=== PATIENT | male | born 1955 | race Caucasian/White ===

== ENCOUNTER 2017-01-23 05:55 | Inpatient (IN) ==
[2017-01-18 09:45] LABS: Basophils # 0.1 10*3/uL (0.0-0.2); Basophils % 0.7 % (0.0-0.8); Eosinophils # 0.2 10*3/uL (0.0-0.87); Eosinophils % 2.1 % (0.00-10.9); Hematocrit 43.9 VOL% (42.0-52.0); Hemoglobin 15.1 GM/DL (14.0-18.0); Immature Granulocytes % 0.3 %; Immature Granulocytes Absolute 0.03 #; Lymphocytes # 3.8 10*3/uL (1.4-4.0); Lymphocytes % 34.5 % (21.2-54.2); Mean Corpuscular HGB Conc 34.4 GM/DL (32-36); Mean Corpuscular Hemoglobin 30 PG (27-34); Mean Corpuscular Volume 86.6 FL (87-102); Mean Platelet Volume 10.5 FL (9.6-12.0); Monocytes # 0.8 10*3/uL (0.11-0.8); Monocytes % 7.6 % (1.7-12.7); Neutrophils % 54.8 % (38.7-73.9); Platelet Count 260 T/CUMM (130-400); Red Blood Count 5.07 MC/CUMM (3.8-5.5); Red Cell Distribution Width 12.7 % (9.3-17.3)
[2017-01-18 09:48] LABS: Apearance,Urine CLEAR (Clear); Bilirubin,Urine Negative (Negative); Blood, Urine Negative (Negative); Glucose,Urine (UA) Negative (Negative); Ketones,Urine Negative (Negative); Nitrite,Urine Negative (Negative); Protein,Urine Negative; RBC,Urine <1 /HPF (0-4); Urine Color Yellow (Yellow); Urine Specific Gravity 1.014 (1.001-1.035); Urine Urobilinogen < 2.0 EU/DL (0.2-1.0); WBC,Urine 2 /HPF (0-6)
[2017-01-18 09:59] LABS: Osmolality,Calculated 282.1 MOS/KG (273-304); Potassium 4.9 MMOL/L (3.5-5.1)
[2017-01-23] MEDS ORDERED: cefTRIAXone 1,000 MG VIAL ONE (05:56)
[2017-01-23] MEDS ORDERED: ALVIMOPAN 12 MG CAPSULE ONE (05:56)
[2017-01-23] MEDS ORDERED: SODIUM PHOSPHATE ENEMA 133 ML BOTTLE RECTAL ONE (05:57)
[2017-01-23] MEDS ORDERED: DIAZEPAM 5 MG TABLET PO ONE (06:13)
[2017-01-23] MEDS ORDERED: SCOPOLAMINE 1.5 MG PATCH TRANSDERM ONE (06:13)
[2017-01-23] MEDS ORDERED: FAMOTIDINE 20 MG TABLET PO ONE (06:14)
[2017-01-23] MEDS: LACTATED RINGERS 1,000 ML IV SCH (06:47)
[2017-01-23] MEDS ORDERED: SODIUM PHOSPHATE ENEMA 133 ML BOTTLE RECTAL SCH ×2 (07:00)
[2017-01-23] MEDS ORDERED: ALVIMOPAN 12 MG CAPSULE PO SCH ×2 (07:00)
[2017-01-23] MEDS ORDERED: cefTRIAXone 1,000 MG in SYRINGE 1 EACH IV ONE (07:00)
[2017-01-23 08:16] LABS: Apearance,Urine CLEAR (Clear); Bilirubin,Urine Negative (Negative); Blood, Urine Large mg/dL (Negative); Glucose,Urine (UA) Negative (Negative); Ketones,Urine Negative (Negative); Mucus,Urine Occasional /LPF (Occasional); Nitrite,Urine Negative (Negative); Protein,Urine Negative; RBC,Urine 149 /HPF (0-4); Urine Color Yellow (Yellow); Urine Specific Gravity 1.008 (1.001-1.035); Urine Urobilinogen < 2.0 EU/DL (0.2-1.0); WBC,Urine 4 /HPF (0-6)
[2017-01-23] MEDS ORDERED: MIDAZOLAM 2 MG/2 ML VIAL ONE (12:03)
[2017-01-23] MEDS ORDERED: SEVOFLURANE 1 UNIT/15 MINUTE INH ONE (12:03)
[2017-01-23] MEDS ORDERED: HYDROmorphone 2 MG/1 ML VIAL ONE (12:03)
[2017-01-23] MEDS ORDERED: PROPOFOL 200 MG/20 ML VIAL IV ONE (12:03)
[2017-01-23] MEDS ORDERED: DEXAMETHASONE 10 MG/1 ML VIAL ONE (12:04)
[2017-01-23] MEDS ORDERED: GLYCOPYRROLATE 0.4 MG/2 ML VIAL ONE (12:04)
[2017-01-23] MEDS ORDERED: ONDANSETRON 4 MG/2 ML VIAL ONE (12:04)
[2017-01-23] MEDS ORDERED: fentaNYL 100 MCG/2 ML VIAL ONE (12:04)
[2017-01-23] MEDS ORDERED: ACETAMINOPHEN 1,000 MG/100 ML VIAL IV ONE (12:04)
[2017-01-23] MEDS ORDERED: KETAMINE 500 MG/10 ML VIAL ONE (12:04)
[2017-01-23] MEDS ORDERED: ROCURONIUM 100 MG/10 ML VIAL IV ONE (12:05)
[2017-01-23] MEDS ORDERED: SUCCINYLCHOLINE 200 MG/10 ML VIAL ONE (12:05)
[2017-01-23] MEDS ORDERED: ONDANSETRON 4 MG/2 ML VIAL IV PRN (12:07)
[2017-01-23] MEDS ORDERED: ALBUMIN 5% 12.5 GM/250 ML VIAL IV ONE (12:14)
[2017-01-23] MEDS: SODIUM CHLORIDE 0.9% 1,000 ML IV SCH (12:37)
[2017-01-23] MEDS: HYDROmorphone PCA 30 MG/30 ML SYRINGE IV SCH (14:23)
[2017-01-23] MEDS ORDERED: ChlordiazePOXIDE/CLIDINIUM 5-2.5 MG CAPSULE PO PRN (15:00)
[2017-01-23] MEDS ORDERED: diphenhydrAMINE 50 MG/1 ML VIAL IV PRN (15:00)
[2017-01-23] MEDS: CEFUROXIME 250 MG TABLET PO SCH ×2 (15:30→22:21)
[2017-01-23] MEDS ORDERED: ZALEPLON 5 MG CAPSULE PO PRN (20:00)
[2017-01-23] MEDS: TRAVOPROST 0.004% OPH SOLN 2.5 ML BOTTLE BOTH EYES SCH (22:20)
[2017-01-23] MEDS: rOPINIRole 0.25 MG TABLET PO SCH (22:21)
[2017-01-23] MEDS: ALVIMOPAN 12 MG CAPSULE PO SCH (22:21)
[2017-01-23] MEDS: OXYBUTYNIN XL 10 MG TABLET PO SCH (22:21)
[2017-01-24] MEDS: SODIUM CHLORIDE 0.9% 1,000 ML IV SCH (02:51)
[2017-01-24 05:56] LABS: Basophils % 0.2 % (0.0-0.8); Hematocrit 37.5 VOL% (42.0-52.0); Hemoglobin 12.5 GM/DL (14.0-18.0); Immature Granulocytes % 0.6 %; Immature Granulocytes Absolute 0.11 #; Lymphocytes # 2.8 10*3/uL (1.4-4.0); Lymphocytes % 14.4 % (21.2-54.2); Mean Corpuscular HGB Conc 33.3 GM/DL (32-36); Mean Corpuscular Hemoglobin 29 PG (27-34); Mean Platelet Volume 10.9 FL (9.6-12.0); Monocytes # 1.4 10*3/uL (0.11-0.8); Monocytes % 7.5 % (1.7-12.7); Neutrophils # 14.9 10*3/uL (1.4-7.4); Neutrophils % 77.3 % (38.7-73.9); Platelet Count 258 T/CUMM (130-400); Red Blood Count 4.26 MC/CUMM (3.8-5.5); Red Cell Distribution Width 12.8 % (9.3-17.3); White Blood Count 19.3 T/CUMM (4-12)
[2017-01-24 06:26] LABS: Calcium 8.3 MG/DL (8.5-10.1); Osmolality,Calculated 283.3 MOS/KG (273-304)
[2017-01-24] MEDS: LACTATED RINGERS 1,000 ML IV SCH (08:53)
[2017-01-24] MEDS: METOPROLOL SUCCINATE XL 25 MG TABLET PO SCH (09:31)
[2017-01-24] MEDS: MULTIVITAMIN (CENTRUM) TABLET PO SCH (09:31)
[2017-01-24] MEDS: CEFUROXIME 250 MG TABLET PO SCH ×2 (09:32→20:54)
[2017-01-24] MEDS: ALVIMOPAN 12 MG CAPSULE PO SCH ×2 (09:32→20:54)
[2017-01-24] MEDS: POLYETHYLENE GLYCOL POWDER 17 GM PACK PO SCH (09:32)
[2017-01-24] MEDS: buPROPion 100 MG TABLET PO SCH (09:32)
[2017-01-24] MEDS ORDERED: MEPERIDINE 50 MG/1 ML VIAL IM PRN (12:21)
[2017-01-24] MEDS ORDERED: oxyCODONE/ACETAMINOPHEN 5-325 MG TABLET PO PRN (12:23)
[2017-01-24] MEDS: oxyCODONE/ACETAMINOPHEN 5-325 MG TABLET PO PRN (15:01)
[2017-01-24] MEDS: HYDROmorphone PCA 30 MG/30 ML SYRINGE IV SCH (15:59)
[2017-01-24] MEDS: TRAVOPROST 0.004% OPH SOLN 2.5 ML BOTTLE BOTH EYES SCH (20:54)
[2017-01-24] MEDS: rOPINIRole 0.25 MG TABLET PO SCH (20:54)
[2017-01-24] MEDS: OXYBUTYNIN XL 10 MG TABLET PO SCH (20:54)
[2017-01-25] MEDS: oxyCODONE/ACETAMINOPHEN 5-325 MG TABLET PO PRN (01:45)
[2017-01-25] MEDS: LACTATED RINGERS 1,000 ML IV SCH (08:30)
[2017-01-25] MEDS: buPROPion 100 MG TABLET PO SCH (08:34)
[2017-01-25] MEDS: CEFUROXIME 250 MG TABLET PO SCH (08:34)
[2017-01-25] MEDS: POLYETHYLENE GLYCOL POWDER 17 GM PACK PO SCH (08:34)
[2017-01-25] MEDS: ALVIMOPAN 12 MG CAPSULE PO SCH (08:34)
[2017-01-25] MEDS: METOPROLOL SUCCINATE XL 25 MG TABLET PO SCH (08:34)
[2017-01-25] MEDS: MULTIVITAMIN (CENTRUM) TABLET PO SCH (08:34)
[2017-01-25 13:28] VITALS: BP 129/78
== END 2017-01-25 14:00 | disposition home or self-care (01) | DRG 708 ==
LOC: N.OR 05:55 → N.SDSINP 05:56 → N.5E 12:07
PROVIDERS: ADMIT Urology; ATTEND Urology

== ENCOUNTER 2020-09-26 12:14 | Inpatient (IN) ==
[2020-09-26 16:15] LABS: Basophils # 0.1 10*3/uL (0.0-0.2); Basophils % 0.2 % (0.0-0.8); Eosinophils # 0.1 10*3/uL (0.0-0.87); Eosinophils % 0.5 % (0.00-10.9); Hematocrit 44.6 VOL% (42.0-52.0); Hemoglobin 14.5 GM/DL (14.0-18.0); Immature Granulocytes % 0.4 %; Immature Granulocytes Absolute 0.09 #; Lymphocytes # 8.5 10*3/uL (1.4-4.0); Lymphocytes % 40.7 % (21.2-54.2); Mean Corpuscular HGB Conc 32.5 GM/DL (32-36); Mean Corpuscular Volume 89.9 FL (87-102); Mean Platelet Volume 10.3 FL (9.6-12.0); Monocytes % 5.3 % (1.7-12.7); Neutrophils % 52.9 % (38.7-73.9); Platelet Count 283 T/CUMM (130-400); Red Blood Count 4.96 MC/CUMM (3.8-5.5); Red Cell Distribution Width 12.6 % (9.3-17.3)
[2020-09-26 16:16] LABS: Bacteria,Urine Occasional /HPF (Few); Bilirubin,Urine Negative (Negative); Blood, Urine Negative (Negative); Glucose,Urine (UA) Negative (Negative); Ketones,Urine Negative (Negative); Mucus,Urine Occasional /LPF (Occasional); Nitrite,Urine Negative (Negative); Protein,Urine Negative; RBC,Urine 2 /HPF (0-4); Squamous Epithelial Cell,Urine Occasional /HPF (0-10); Urine Appearance CLEAR (Clear); Urine Color Yellow (Yellow); Urine Specific Gravity 1.017 (1.001-1.035); Urine Urobilinogen < 2.0 EU/DL (0.2-1.0)
[2020-09-26] MEDS ORDERED: KETOROLAC 30 MG/1 ML VIAL IV STA (16:20)
[2020-09-26 16:30] LABS: Bilirubin,Total 0.6 MG/DL (0.20-1.00); Calcium 9.4 MG/DL (8.5-10.1); Osmolality,Calculated 278.4 MOS/KG (273-304); Total Protein 7.5 G/DL (6.4-8.2)
[2020-09-26 17:32] LABS: Lymphocytes 34 % (20-55); Segmented Neutrophils 56 % (50-85); Total Cells Counted 100
[2020-09-26] MEDS ORDERED: ONDANSETRON 4 MG/2 ML VIAL IV PRN (18:14)
[2020-09-26] MEDS ORDERED: ACETAMINOPHEN 325 MG TABLET PO PRN (18:14)
[2020-09-26] MEDS: PIPERACILLIN/TAZOBACTAM 3,375 MG in SODIUM CHLORIDE 0.9% 100 ML IV SCH (19:10)
[2020-09-26] MEDS: DEXTROSE 5% LACTATED RINGERS 1,000 ML IV SCH (19:10)
[2020-09-27] MEDS: PIPERACILLIN/TAZOBACTAM 3,375 MG in SODIUM CHLORIDE 0.9% 100 ML IV SCH ×3 (03:09→17:40)
[2020-09-27] MEDS: DEXTROSE 5% LACTATED RINGERS 1,000 ML IV SCH ×3 (03:19→23:15)
[2020-09-27] MEDS: carvediloL 6.25 MG TABLET PO SCH ×2 (08:37→16:48)
[2020-09-27] MEDS: PANTOPRAZOLE 40 MG TABLET PO SCH (08:37)
[2020-09-27] MEDS ORDERED: BUPIVACAINE MPF 0.25% 30 ML VIAL ONE (10:42)
[2020-09-27] MEDS ORDERED: LIDOCAINE 1%/EPI INJ 20 ML VIAL ONE (10:42)
[2020-09-27] MEDS ORDERED: SEVOFLURANE 1 UNIT/15 MINUTE INH ONE (10:53)
[2020-09-27] MEDS ORDERED: ROCURONIUM 50 MG/5 ML VIAL IV ONE (10:53)
[2020-09-27] MEDS ORDERED: MIDAZOLAM 2 MG/2 ML VIAL ONE (10:53)
[2020-09-27] MEDS ORDERED: fentaNYL 100 MCG/2 ML VIAL ONE ×2 (10:53→12:18)
[2020-09-27] MEDS ORDERED: propofoL 200 MG/20 ML VIAL IV ONE (10:53)
[2020-09-27] MEDS ORDERED: LIDOCAINE 2% 5 ML VIAL ONE (10:53)
[2020-09-27] MEDS ORDERED: ONDANSETRON 4 MG/2 ML VIAL ONE (10:53)
[2020-09-27] MEDS ORDERED: LACTATED RINGERS 1,000 ML IV SCH (11:30)
[2020-09-27] MEDS ORDERED: PHENYLEPHRINE 1 MG/10 ML SYRINGE IV ONE (11:49)
[2020-09-27] MEDS ORDERED: ACETAMINOPHEN INJ 1,000 MG/100 ML VIAL IV ONE (11:49)
[2020-09-27] MEDS ORDERED: NEOSTIGMINE 10 MG/10 ML VIAL ONE (12:48)
[2020-09-27] MEDS ORDERED: GLYCOPYRROLATE 0.4 MG/2 ML VIAL ONE (12:48)
[2020-09-27] MEDS ORDERED: LACTATED RINGERS 1,000 ML IV ONE (12:56)
[2020-09-27] MEDS ORDERED: ONDANSETRON 4 MG/2 ML VIAL IV PRN (13:47)
[2020-09-27] MEDS: HYDROmorphone 2 MG/1 ML VIAL IV PRN ×2 (13:51→13:56)
[2020-09-27] MEDS: MORPHINE 2 MG/1 ML SYRINGE IV PRN ×2 (16:22→20:56)
[2020-09-27] MEDS: ASPIRIN EC 81 MG TABLET PO SCH (20:57)
[2020-09-27] MEDS ORDERED: rOPINIRole 0.25 MG TABLET PO SCH (21:00)
[2020-09-27] MEDS ORDERED: LATANOPROST 0.005% OPH SOLN 2.5 ML BOTTLE BOTH EYES SCH (21:00)
[2020-09-28] MEDS: PIPERACILLIN/TAZOBACTAM 3,375 MG in SODIUM CHLORIDE 0.9% 100 ML IV SCH ×2 (01:41→09:49)
[2020-09-28 05:49] LABS: Albumin 2.7 G/DL (3.4-5.0); Calcium 8.6 MG/DL (8.5-10.1); Osmolality,Calculated 278.5 MOS/KG (273-304); Potassium 3.8 MMOL/L (3.5-5.1); Total Protein 6.1 G/DL (6.4-8.2)
[2020-09-28 05:54] LABS: Basophils # 0.1 10*3/uL (0.0-0.2); Basophils % 0.5 % (0.0-0.8); Eosinophils # 0.3 10*3/uL (0.0-0.87); Eosinophils % 1.9 % (0.00-10.9); Hematocrit 37.3 VOL% (42.0-52.0); Immature Granulocytes % 0.4 %; Immature Granulocytes Absolute 0.05 #; Lymphocytes # 4.7 10*3/uL (1.4-4.0); Lymphocytes % 35.8 % (21.2-54.2); Mean Corpuscular Volume 90.1 FL (87-102); Mean Platelet Volume 10.8 FL (9.6-12.0); Monocytes % 8.1 % (1.7-12.7); Neutrophils % 53.3 % (38.7-73.9); Platelet Count 228 T/CUMM (130-400); Red Blood Count 4.14 MC/CUMM (3.8-5.5); Red Cell Distribution Width 12.4 % (9.3-17.3)
[2020-09-28 05:55] LABS: Hemoglobin 12.3 GM/DL (14.0-18.0)
[2020-09-28 05:58] LABS: Band Neutrophils 1 % (0-10); Eosinophils 5 % (0-10); Lymphocytes 16 % (20-55); Platelet Estimate Normal; Segmented Neutrophils 71 % (50-85); Total Cells Counted 100
[2020-09-28] MEDS: DEXTROSE 5% LACTATED RINGERS 1,000 ML IV SCH ×2 (06:14→11:59)
[2020-09-28] MEDS ORDERED: GLIMEPIRIDE 2 MG TABLET PO SCH (08:00)
[2020-09-28] MEDS: ASPIRIN EC 81 MG TABLET PO SCH (08:17)
[2020-09-28] MEDS: PANTOPRAZOLE 40 MG TABLET PO SCH (08:18)
[2020-09-28] MEDS: carvediloL 6.25 MG TABLET PO SCH (08:18)
[2020-09-28] MEDS ORDERED: ROSUVASTATIN 10 MG TABLET PO SCH (09:00)
[2020-09-28] MEDS ORDERED: CHOLECALCIFEROL 1,000 UNIT TABLET PO SCH (09:00)
[2020-09-28] MEDS ORDERED: Lupron IM SCH (09:00)
[2020-09-28] MEDS ORDERED: DOCUSATE SODIUM 100 MG CAPSULE PO SCH (09:00)
[2020-09-28] MEDS ORDERED: CALCIUM (CARBONATE) 500 MG TABLET PO SCH (09:00)
[2020-09-28 11:30] VITALS: BP 130/65
[2020-09-28 11:33] LABS: Albumin 2.7 G/DL (3.4-5.0); Bilirubin,Direct 0.11 MG/DL (0.0-0.20); Bilirubin,Indirect 0.4 MG/DL (0.0-1.0); Bilirubin,Total 0.5 MG/DL (0.20-1.00); Total Protein 5.6 G/DL (6.4-8.2)
[2020-09-28 14:28] LABS: Alanine Aminotransferase 154 U/L (16-61); Albumin 2.6 G/DL (3.4-5.0); Alkaline Phosphatase 107 U/L (45-117); Aspartate Amino Transferase 72 U/L (0-37); Bilirubin,Direct < 0.100 MG/DL (0.0-0.20); Bilirubin,Indirect 0.3 MG/DL (0.0-1.0); Bilirubin,Total < 0.39 MG/DL (0.20-1.00)
[2020-09-29] MEDS ORDERED: ASPIRIN EC 81 MG TABLET PO SCH (09:00)
== END 2020-09-28 16:00 | disposition home or self-care (01) | DRG 419 ==
LOC: N.ED 12:14 → N.EDINP 18:14 → N.5E 09-27 02:09
PROVIDERS: ADMIT Surgery; ATTEND Surgery
PROC: LAPCHOL (2020-09-27 08:50)